=== PATIENT | male | born 1975 | race Caucasian/White ===

== ENCOUNTER 2016-11-25 12:21 | Emergency (ER) | payer BC, OTHER ==
[~2016-11-25 12:21] MED LIST: CIPR500T4 PO; CITA20TA4 PO; LORT7.5T3 PO; RANI150C PO
[2016-11-25 12:23] VITALS: BP 142/94; PULSE 66; RESP 14; TEMP 97.9; O2SAT 98
[2016-11-25] MEDS ORDERED: ZANTTAB9 PO (14:03)
--- NOTE | 2016-11-25 14:23 | PD ---
HPI Chief Complaint: GI Complaint Time Seen by Provider: 14:23 Travel History International Travel<30 days: No Contact w/Intl Traveler<30days: No Traveled to known affect area: No History of Present Illness HPI 41-year-old male with history of anal fissure, repaired by Dr. Mata presents to emergency department for evaluation. Patient states that his surgery was in September. He has a history of colitis and has had bloody stools over the last 2 weeks. He did not think much of this because that typically happens with his colitis flares. He states what is concerning is the increased pain in his rectum and in the perineum posterior to his scrotum. Patient denies fever or chills. No nausea or vomiting. No chest pain or tinnitus. No difficulty breathing. Patient has had no episodes of diaphoresis or dizziness. He has no other symptoms to report. PFSH Past Medical History Heart Rhythm Problems: Yes ([id number]) Cardiac Catheterization: No Cardiovascular Problems: Yes (WPW) High Cholesterol: No Congestive Heart Failure: No Diabetes: No Diminished Hearing: No Gastrointestinal Disorders: Yes (COLITIS) Hypertension: No Musculoskeletal: Yes ("BACK PROBLEMS") Myocardial Infarction: No Past Surgical History Coronary Artery Bypass Graft: No Genitourinary Surgery: Yes (VASECTOMY) Other Surgery: Yes (FISTULA REPAIR, POLYP REMOVAL ) Social History Alcohol Use: Yes (3 BEERS/DAY) Tobacco Use: Yes (1/2 PPD) Substance Use: No Allergies-Medications (Allergen,Severity, Reaction): Coded Allergies: Penicillin (Verified Allergy, Severe, Rash, 06/17/11) Reported Meds & Prescriptions Reported Meds & Active Scripts Active Ibuprofen 800 Mg Tab 800 Mg PO Q8H PRN Flagyl (Metronidazole) 500 Mg Tab 500 Mg PO TID 7 Days Cipro (Ciprofloxacin HCl) 500 Mg Tab 500 Mg PO BID 10 Days Reported Zantac 75 (Ranitidine HCl) 75 Mg Tab 75 Mg PO DAILY Take 30 to 60 minutes before eating food or drinking beverages that cause heartburn. Review of Systems Except as stated in HPI: all other systems reviewed are Neg Physical Exam Narrative GENERAL: Well-nourished, well-developed patient. SKIN: Warm and dry. HEAD: Normocephalic. EYES: No scleral icterus. No injection or drainage. NECK: Supple, trachea midline. No JVD or lymphadenopathy. CARDIOVASCULAR: Regular rate and rhythm without murmurs, gallops, or rubs. RESPIRATORY: Breath sounds equal bilaterally. No accessory muscle use. GASTROINTESTINAL: Abdomen soft, non-tender, nondistended. RECTAL EXAM: Exam done in presence of nursing staff. No masses. Significant tenderness to palpation. No areas of fluctuance. Stool is maroon brown. MUSCULOSKELETAL: No cyanosis, or edema. BACK: Nontender without obvious deformity. No CVA tenderness. Data Data Last Documented VS Vital Signs Date Time Temp Pulse Resp B/P Pulse Ox O2 Delivery O2 Flow Rate FiO2 11/25/16 12:23 97.9 66 14 142/94 98 Room Air Orders Iv Access Insert/Monitor (11/25/16 14:24) Complete Blood Count With Diff (11/25/16 14:24) Basic Metabolic Panel (Bmp) (11/25/16 14:24) Urinalysis - C+S If Indicated (11/25/16 14:24) Ct Abd/Pel W Iv Contrast(Rout) (11/25/16 ) Iohexol 350 Inj (Omnipaque 350 Inj) (11/25/16 15:15) Labs Laboratory Tests Test 11/25/16 11/25/16 14:30 16:05 White Blood Count 5.6 TH/MM3 Red Blood Count 4.78 MIL/MM3 Hemoglobin 14.7 GM/DL Hematocrit 42.6 % Mean Corpuscular Volume 89.1 FL Mean Corpuscular Hemoglobin 30.7 PG Mean Corpuscular Hemoglobin 34.5 % Concent Red Cell Distribution Width 13.2 % Platelet Count 378 TH/MM3 Mean Platelet Volume 7.5 FL Neutrophils (%) (Auto) 46.5 % Lymphocytes (%) (Auto) 39.3 % Monocytes (%) (Auto) 10.0 % Eosinophils (%) (Auto) 3.4 % Basophils (%) (Auto) 0.8 % Neutrophils # (Auto) 2.6 TH/MM3 Lymphocytes # (Auto) 2.2 TH/MM3 Monocytes # (Auto) 0.6 TH/MM3 Eosinophils # (Auto) 0.2 TH/MM3 Basophils # (Auto) 0.0 TH/MM3 CBC Comment DIFF FINAL Differential Comment Sodium Level 140 MEQ/L Potassium Level 3.6 MEQ/L Chloride Level 103 MEQ/L Carbon Dioxide Level 31.4 MEQ/L Anion Gap 6 MEQ/L Blood Urea Nitrogen 9 MG/DL Creatinine 1.01 MG/DL Estimat Glomerular Filtration 81 ML/MIN Rate Random Glucose 91 MG/DL Calcium Level 9.2 MG/DL Urine Color LIGHT-YELLOW Urine Turbidity CLEAR Urine pH 6.0 Urine Specific Ma[place] GREATER THAN 1.050 Urine Protein NEG mg/dL Urine Glucose (UA) NEG mg/dL Urine Ketones NEG mg/dL Urine Occult Blood NEG Urine Nitrite NEG Urine Bilirubin NEG Urine Urobilinogen LESS THAN 2.0 MG/DL Urine Leukocyte Esterase NEG Urine WBC 2 /hpf Microscopic Urinalysis Comment CULT NOT INDICATED MDM Medical Decision Making Medical Screen Exam Complete: Yes Emergency Medical Condition: Yes Medical Record Reviewed: Yes Differential Diagnosis Colitis versus diverticulitis versus perianal abscess versus perirectal abscess versus GI bleed. Narrative Course 41-year-old male presents to the emergency department for evaluation of bloody stool and rectal pain. Appears well. He does have tenderness on rectal examination with a positive Hemoccult. CBC and chemistry are without acute concern. CT of the abdomen and pelvis shows mild inflammatory change adjacent to the mid sigmoid colon and there is a mild sigmoid diverticulosis. These combined findings suggest an inflammatory process likely a mild diverticulitis as the etiology. No abscess or free fluid identified. Remainder of the examination is within normal limits. I discussed the patient with my attending physician who also assessed the patient. I have placed a call to Dr. Mata. After discussing the results with him, Patient will be discharged home on Cipro and Flagyl and is instructed to follow-up with [facility] Internal Pos. & Neg. Controls: Passed Fecal Specimen Occult Blood: Positive Diagnosis Primary Impression: Diverticulitis Qualified Code: K57.33 - Diverticulitis of large intestine without perforation or abscess with bleeding Additional Impression: Bloody stools Referrals: Shaji Mata MD Primary Care Physician Patient Instructions: Diverticulitis (ED), Diverticulitis Diet (ED), General Instructions Departure Forms: Tests/Procedures, Work Release Enter return to work date: Nov 27, 2016 Additional Instructions: Follow-up with Dr. Mata; contact his office for an appointment Follow your primary care provider Return immediately to the emergency department with any acute worsening of symptoms. Med/Other Pt SpecificInfo: Prescription(s) given Scripts Ibuprofen 800 Mg [id number] Mg PO Q8H PRN (PAIN SCALE 1 TO 10) #30 TAB Ref 0 Prov:Hannah Morelos 11/25/16 Metronidazole (Flagyl)500 Mg [id number] Mg PO TID 7 Days Ref 0 Prov:Hannah Morelos 11/25/16 Ciprofloxacin (Cipro)500 Mg [id number] Mg PO BID 10 Days Ref 0 Prov:Hannah oMrelos 11/25/16 Disposition: 01 DISCHARGE HOME Condition: Stable Hannah Morelos Nov 25, 2016 14:23
[2016-11-25 14:40] LABS: AUTOMATED NEUTROPHIL # 2.6 TH/MM3 (1.8-7.7); BASOPHIL % 0.8 % (0.0-2.0); EOSINOPHIL # 0.2 TH/MM3 (0-0.4); EOSINOPHIL % 3.4 % (0.0-4.0); HEMATOCRIT 42.6 % (39.0-51.0); HEMO FLAGS DIFF FINAL; LYMPH % 39.3 % (9.0-44.0); LYMPHOCYTE # 2.2 TH/MM3 (1.0-4.8); MEAN CELL VOLUME 89.1 FL (80.0-100.0); MEAN CORPUSCULAR HEMOGLOBIN 30.7 PG (27.0-34.0); MEAN CORPUSCULAR HGB CONC 34.5 % (32.0-36.0); NEUT % 46.5 % (16.0-70.0); PLATELET COUNT 378 TH/MM3 (150-450); RED BLOOD COUNT 4.78 MIL/MM3 (4.50-5.90); RED CELL DISTRIBUTION WIDTH 13.2 % (11.6-17.2); WHITE BLOOD COUNT 5.6 TH/MM3 (4.0-11.0)
[2016-11-25 15:00] LABS: BICARBONATE 31.4 MEQ/L (21.0-32.0); POTASSIUM 3.6 MEQ/L (3.5-5.1)
[2016-11-25] MEDS ORDERED: IOHEXOL 350 MG/ML 10 ML VIAL (for RAD DIAG) IV ONE (15:15)
--- NOTE | 2016-11-25 15:28 | RADRPT ---
EXAM DATE/TIME: 11/25/2016 15:05 [facility] COMPARISON: No previous studies available for comparison. INDICATIONS : Constant hypogastric abdominal pain with rectal bleeding for 2 weeks; worsens with bowel movements. IV CONTRAST: 71 cc Omnipaque 350 (iohexol) IV ORAL CONTRAST: No oral contrast ingested. RADIATION DOSE: 9.96 CTDIvol (mGy) MEDICAL HISTORY : Cardiovascular disease. Colitis. SURGICAL HISTORY : None. ENCOUNTER: Initial ACUITY: 2 weeks PAIN SCALE: 7/10 LOCATION: Hypogastric abdomen/pelvis TECHNIQUE: Volumetric scanning of the abdomen and pelvis was performed. Using automated exposure control and ad justment of the mA and/or kV according to patient size, radiation dose was kept as low as reasonably achievable to obtain optimal diagnostic quality images. FINDINGS: LOWER LUNGS: The visualized lower lungs are clear. LIVER: Homogeneous density without lesion. There is no dilation of the biliary tree. No calcified gallston es. SPLEEN: Normal size without lesion. PANCREAS: Within normal limits. KIDNEYS: Normal in size and shape. There is no mass, stone or hydronephrosis. ADRENAL GLANDS: Within normal limits. VASCULAR: There is no aortic aneurysm. There is very mild atherosclerotic disease. BOWEL/MESENTERY: The stomach and small bowel demonstrate no abnormality. Terminal ileum and appendix are normal. There is mild sigmoid diverticulosis. No pericolonic inflammatory change is present adjacent to the latera l aspect of the mid sigmoid colon. There is also adjacent thickening of the retroperitoneal fascial p erika. No free air or free fluid is present. ABDOMINAL WALL: Within normal limits. RETROPERITONEUM: There is no lymphadenopathy. BLADDER: No wall thickening or mass. REPRODUCTIVE: Within normal limits. INGUINAL: There is no lymphadenopathy or hernia. MUSCULOSKELETAL: Within normal limits for patient age. CONCLUSION: 1. There is mild inflammatory change adjacent to the mid sigmoid colon and there are is mild sigmoid diverticulosis. These combined findings suggest an inflammatory process, likely a mild diverticulitis as the etiology. No abscess or free fluid is present. 2. Remainder of the examination is within normal limits. Stuart Kendrick MD on November 25, 2016 at 15:20 Board Certified Radiologist. This report was verified electronically.
[2016-11-25] MEDS ORDERED: CIPR-9 PO (16:17)
[2016-11-25] MEDS ORDERED: METR-1 PO (16:17)
[2016-11-25] MEDS ORDERED: IBUP800T23 PO (16:18)
[2016-11-25 16:24] LABS: BLOOD, URINE NEG (NEG); GLUCOSE,URINE NEG (NEG); KETONE, URINE NEG (NEG); NITRITE,URINE NEG (NEG); URINE COLOR LIGHT-YELLOW (YELLW/STRAW)
[2016-11-25 16:27] LABS: COMMENT (UR) CULT NOT INDICATED; CULTURE IF INDICATED CULT NOT INDICATED
--- NOTE | 2016-11-25 16:30 | PD ---
Physical Exam Date Seen by Provider: Nov 25, 2016 Time Seen by Provider: 15:30 Narrative I, Dr. Griffin, have reviewed the advance practice practitioner's documentation and am in agreement, met with the patient face to face, made the diagnosis, and the medical decision making was done by me. *My assessment and Findings: Patient is seen with nurse practitioner, please see nurse practitioner note for further information. Here with rectal bleeding , pain, history of ulcerative colitis. On evaluation, patient is well-appearing , abdomen is benign and nontender, he does have Hemoccult positive stools. Laboratory Tests Test 11/25/16 14:30 Monocytes (%) (Auto) 10.0 % (0.0-8.0) Estimat Glomerular Filtration 81 ML/MIN (>89) Rate Last 24 hours Impressions Abdomen/Pelvis CT 11/25/16 0000 Signed Impressions: Service Date/Time: Friday, November 25, 2016 15:05 - CONCLUSION: 1. There is mild inflammatory change adjacent to the mid sigmoid colon and there are is mild sigmoid diverticulosis. These combined findings suggest an inflammatory process , likely a mild diverticulitis as the etiology. No abscess or free fluid is present. 2. Remainder of the examination is within normal limits. Stuart Kendrick MD Lab work is negative and CAT scan did not revealing signs of acute intra- abdominal or pelvic or perirectal processes. He does have some mild diverticulitis. At this point, case was discussed briefly with Dr. Mata and patient is released with antibiotics for treatment of diverticulitis. He should follow-up with his primary care physician Dr. Mata. Return for any worsening in bleeding, pain, and as needed. The plan was discussed with the patient he states understanding. Data Data Last Documented VS Vital Signs Date Time Temp Pulse Resp B/P Pulse Ox O2 Delivery O2 Flow Rate FiO2 11/25/16 12:23 97.9 66 14 142/94 98 Room Air Orders Iv Access Insert/Monitor (11/25/16 14:24) Complete Blood Count With Diff (11/25/16 14:24) Basic Metabolic Panel (Bmp) (11/25/16 14:24) Urinalysis - C+S If Indicated (11/25/16 14:24) Ct Abd/Pel W Iv Contrast(Rout) (11/25/16 ) Iohexol 350 Inj (Omnipaque 350 Inj) (11/25/16 15:15) Labs Laboratory Tests Test 11/25/16 14:30 White Blood Count 5.6 TH/MM3 Red Blood Count 4.78 MIL/MM3 Hemoglobin 14.7 GM/DL Hematocrit 42.6 % Mean Corpuscular Volume 89.1 FL Mean Corpuscular Hemoglobin 30.7 PG Mean Corpuscular Hemoglobin 34.5 % Concent Red Cell Distribution Width 13.2 % Platelet Count 378 TH/MM3 Mean Platelet Volume 7.5 FL Neutrophils (%) (Auto) 46.5 % Lymphocytes (%) (Auto) 39.3 % Monocytes (%) (Auto) 10.0 % Eosinophils (%) (Auto) 3.4 % Basophils (%) (Auto) 0.8 % Neutrophils # (Auto) 2.6 TH/MM3 Lymphocytes # (Auto) 2.2 TH/MM3 Monocytes # (Auto) 0.6 TH/MM3 Eosinophils # (Auto) 0.2 TH/MM3 Basophils # (Auto) 0.0 TH/MM3 CBC Comment DIFF FINAL Differential Comment Sodium Level 140 MEQ/L Potassium Level 3.6 MEQ/L Chloride Level 103 MEQ/L Carbon Dioxide Level 31.4 MEQ/L Anion Gap 6 MEQ/L Blood Urea Nitrogen 9 MG/DL Creatinine 1.01 MG/DL Estimat Glomerular Filtration 81 ML/MIN Rate Random Glucose 91 MG/DL Calcium Level 9.2 MG/DL [facility] Medical Record Reviewed: Yes Supervised Visit with TELLY: Yes Diagnosis Primary Impression: Diverticulitis Qualified Code: K57.33 - Diverticulitis of large intestine without perforation or abscess with bleeding Additional Impression: Bloody stools Referrals: Shaji Mata MD Primary Care Physician Patient Instructions: General Instructions, Diverticulitis (ED), Diverticulitis Diet (ED) Departure Forms: Work Release, Enter return to work date: Tests/Procedures Additional Instruction: Follow-up with Dr. Mata; contact his office for an appointment Follow your primary care provider Return immediately to the emergency department with any acute worsening of symptoms. Scripts Ibuprofen 800 Mg [id number] Mg PO Q8H PRN (PAIN SCALE 1 TO 10) #30 TAB Ref 0 Prov:Hannah Morelos 11/25/16 Metronidazole (Flagyl)500 Mg [id number] Mg PO TID 7 Days Ref 0 Prov:Hannah Morelos 11/25/16 Ciprofloxacin (Cipro)500 Mg Ijw125 Mg PO BID 10 Days Ref 0 Prov:Hannah Morelos 11/25/16 Disposition: 01 DISCHARGE HOME Condition: Stable Gary Griffin MD Nov 25, 2016 16:30
== END 2016-11-25 16:31 | disposition home or self-care (01) ==
LOC: NEPE 12:21
DX: K57.92 Diverticulitis of intestine, part unspecified, without perforation or abscess without bleeding (principal); G20 Parkinson's disease; K52.9 Noninfective gastroenteritis and colitis, unspecified
CPT/HCPCS: 74177; 80048; 81001; 85025; 99285; Q9967

== ENCOUNTER 2018-03-24 03:33 | Emergency (ER) | payer OTHER ==
[~2018-03-24] VITALS: Ht 177.8 cm; Wt 81.3 kg
[~2018-03-24 03:33] MED LIST changes: +CIPR-9 PO; -CIPR500T4 PO; -CITA20TA4 PO; +IBUP1TAB7 PO; -LORT7.5T3 PO; +METR-1 PO; -RANI150C PO; +ZANTTAB9 PO
[2018-03-24 03:35] VITALS: BP 135/87; PULSE 94; RESP 18; TEMP 98.3; O2SAT 96
[2018-03-24] MEDS ORDERED: ZANT150T2 PO (03:41)
[2018-03-24] MEDS ORDERED: SODIUM CHLOR 0.9% 1000 ML INJ 1,000 ML IV SCH (03:55)
[2018-03-24] MEDS ORDERED: SODIUM CHLORIDE 0.9% FLUSH 10 ML FLUSH IV FLUSH PRN (04:00)
[2018-03-24] MEDS ORDERED: KETOROLAC TROMETHAMINE 30 MG/ML (IVP) VIAL IVP ONE (04:00)
[2018-03-24] MEDS ORDERED: MORPHINE SULFATE 4 MG/ML INJ IV PUSH ONE (04:00)
[2018-03-24] MEDS ORDERED: ONDANSETRON HCL 4 MG/2 ML VIAL IVP ONE (04:00)
--- NOTE | 2018-03-24 04:04 | PD ---
HPI Chief Complaint: Abdominal Pain Time Seen by Provider: 03:46 Travel History International Travel<30 days: No Contact w/Intl Traveler<30days: No Traveled to known affect area: No History of Present Illness HPI Patient is a 42 year old male, with history of diverticulitis, who comes in complaining of abdominal pain. He says it started about 8 hours ago. He says it eased up a little and he went to asleep, but then it came back and woke him up. He has not taken anything for the pain. He says the pain is in his lower abdomen. He denies vomiting, but has had some nausea. He says he had some diarrhea yesterday, but nothing today. He denies fever or chills. He says he has normal urination. Severity is mild to moderate. PFSH Past Medical History Blood Disorders: No Anxiety: Yes Depression: No Heart Rhythm Problems: Yes ([id number]) Cancer: No Cardiac Catheterization: No Cardiovascular Problems: Yes (WPW) High Cholesterol: No Chemotherapy: No Congestive Heart Failure: No Diabetes: No Diminished Hearing: No Diverticulitis: Yes Endocrine: No Gastrointestinal Disorders: Yes (COLITIS) Genitourinary: No Hypertension: No Immune Disorder: No Implanted Vascular Access Dvce: No Musculoskeletal: Yes ("BACK PROBLEMS") Psychiatric: No Reproductive: No Respiratory: No Myocardial Infarction: No Radiation Therapy: No Tetanus Vaccination: Unknown Influenza Vaccination: No Past Surgical History Coronary Artery Bypass Graft: No Genitourinary Surgery: Yes (VASECTOMY) Other Surgery: Yes (FISTULA REPAIR, POLYP REMOVAL ) Family History Family Myocardial Infarction: No Social History Alcohol Use: Yes (3 BEERS/DAY) Tobacco Use: Yes (1/2 PPD) Substance Use: No Allergies-Medications (Allergen,Severity, Reaction): Coded Allergies: penicillin G (Unverified Allergy, Severe, Rash, 03/24/18) Reported Meds & Prescriptions Reported Meds & Active Scripts Active Review of Systems Except as stated in HPI: all other systems reviewed are Neg General / Constitutional: No: Fever, Chills HENT: No: Headaches, Lightheadedness Cardiovascular: No: Chest Pain or Discomfort Respiratory: No: Shortness of Breath Gastrointestinal: Positive: Nausea, Diarrhea, Abdominal Pain Genitourinary: No: Dysuria Musculoskeletal: No: Myalgias, Edema Skin: No Rash, No Change in Pigmentation Neurologic: No: Weakness, Dizziness Physical Exam Narrative GENERAL: Awake and alert, in no acute distress. SKIN: Focused skin assessment warm/dry. HEAD: Atraumatic. Normocephalic. EYES: Pupils equal and round. No scleral icterus. ENT: Mucous membranes pink and moist. NECK: Trachea midline. No JVD. CARDIOVASCULAR: Regular rate and rhythm. No murmur appreciated. RESPIRATORY: No accessory muscle use. Clear to auscultation. Breath sounds equal bilaterally. GASTROINTESTINAL: Abdomen soft, nondistended. Tender to palpation of the left side of the abdomen. No rebound or guarding. MUSCULOSKELETAL: No obvious deformities. No clubbing. No cyanosis. No edema. NEUROLOGICAL: Awake and alert. No obvious cranial nerve deficits. Motor grossly within normal limits. Normal speech. PSYCHIATRIC: Appropriate mood and affect; insight and judgment normal. Data Data Last Documented VS Vital Signs Date Time Temp Pulse Resp B/P (MAP) Pulse Ox O2 Delivery O2 Flow Rate FiO2 03/24/18 04:06 97 03/24/18 03:35 98.3 94 18 135/87 (103) Orders Orders Complete Blood Count With Diff (03/24/18 03:55) Comprehensive Metabolic Panel (03/24/18 03:55) Prothrombin Time / Inr (Pt) (03/24/18 03:55) Act Partial Throm Time (Ptt) (03/24/18 03:55) Urinalysis - C+S If Indicated (03/24/18 03:55) Ct Abd/Pel W Iv Contrast(Rout) (03/24/18 03:55) Iv Access Insert/Monitor (03/24/18 03:55) Ecg Monitoring (03/24/18 03:55) Oximetry (03/24/18 03:55) Morphine Inj (Morphine Inj) (03/24/18 04:00) Ondansetron Inj (Zofran Inj) (03/24/18 04:00) Sodium Chlor 0.9% 1000 Ml Inj (Ns 1000 M (03/24/18 03:55) Sodium Chloride 0.9% Flush (Ns Flush) (03/24/18 04:00) Ketorolac Inj (Toradol Inj) (03/24/18 04:00) Iohexol 350 Inj (Omnipaque 350 Inj) (03/24/18 04:57) Labs Laboratory Tests Test 03/24/18 04:00 White Blood Count 10.3 TH/MM3 Red Blood Count 4.97 MIL/MM3 Hemoglobin 14.9 GM/DL Hematocrit 44.8 % Mean Corpuscular Volume 90.1 FL Mean Corpuscular Hemoglobin 30.0 PG Mean Corpuscular Hemoglobin Concent 33.3 % Red Cell Distribution Width 12.8 % Platelet Count 359 TH/MM3 Mean Platelet Volume 8.0 FL Neutrophils (%) (Auto) 73.8 % Lymphocytes (%) (Auto) 15.3 % Monocytes (%) (Auto) 9.3 % Eosinophils (%) (Auto) 1.1 % Basophils (%) (Auto) 0.5 % Neutrophils # (Auto) 7.5 TH/MM3 Lymphocytes # (Auto) 1.6 TH/MM3 Monocytes # (Auto) 1.0 TH/MM3 Eosinophils # (Auto) 0.1 TH/MM3 Basophils # (Auto) 0.1 TH/MM3 CBC Comment DIFF FINAL Differential Comment Prothrombin Time 10.0 SEC Prothromb Time International Ratio 1.0 RATIO Activated Partial Thromboplast Time 25.9 SEC Blood Urea Nitrogen 12 MG/DL Creatinine 0.99 MG/DL Random Glucose 100 MG/DL Total Protein 7.6 GM/DL Albumin 3.9 GM/DL Calcium Level 9.0 MG/DL Alkaline Phosphatase 67 U/L Aspartate Amino Transf (AST/SGOT) 21 U/L Alanine Aminotransferase (ALT/SGPT) 41 U/L Total Bilirubin 0.6 MG/DL Sodium Level 137 MEQ/L Potassium Level 3.9 MEQ/L Chloride Level 104 MEQ/L Carbon Dioxide Level 26.7 MEQ/L Anion Gap 6 MEQ/L Estimat Glomerular Filtration Rate 83 ML/MIN [facility] Medical Decision Making Medical Screen Exam Complete: Yes Emergency Medical Condition: Yes Medical Record Reviewed: Yes Differential Diagnosis UTI vs diverticulitis vs renal stone vs colitis Narrative Course Patient is a 42 year old male who comes in complaining of lower abdominal pain. Exam shows tenderness to palpation of the LLQ, no rebound or guarding. IV established, labs sent. Labs show no acute abnormalities. CT abd/pelvis performed shows evidence of diverticulitis. Last 24 hours Impressions Abdomen/Pelvis CT 03/24/18 0355 Signed Impressions: Service Date/Time: Saturday, March 24, 2018 04:39 - CONCLUSION: Significant inflammation and minimal extraluminal air around the sigmoid colon in the left mid pelvis consistent with diverticulitis. There is no drainable fluid filled abscess or drainable collection seen. Alejandro Doll MD Patient given IVF, toradol, morphine with improvement of his symptoms. Will be discharged with prescriptions for Cipro, Flagyl, [place]. Advised to avoid alcohol while taking the antibiotics. Advised to return for any worsening symptoms or if he does not improve in the next few days. Advised to follow up with his doctor. He is comfortable with discharge at this time. Diagnosis Primary Impression: Diverticulitis Patient Instructions: Diverticulitis (ED), General Instructions Additional Instructions: Take all of your antibiotics. Do not drink alcohol while taking the antibiotics. Take pain medicine as needed. Drink plenty of fluids. Follow up with your doctor. Return to the ED as needed for any worsening symptoms. Scripts Hydrocodone-Acetaminophen ([place]) 5 Mg-325 Mg Tab 1 TAB PO Q6H Y for PAIN, #12 TAB 0 Refills Prov: Cecilia Dunham MD 03/24/18 Metronidazole (Flagyl) 500 Mg Tab 500 MG PO TID for Infection for 7 Days, TAB 0 Refills Prov: Cecilia Dunham MD 03/24/18 Ciprofloxacin (Cipro) 500 Mg Tab 500 MG PO BID for Infection for 7 Days, #14 TAB 0 Refills Prov: Cecilia Dunham MD 03/24/18 Disposition: 01 DISCHARGE HOME Condition: Stable Cecilia Dunham MD March 24, 2018 04:04
[2018-03-24 04:06] VITALS: O2SAT 97
[2018-03-24 04:10] LABS: AUTOMATED NEUTROPHIL # 7.5 TH/MM3 (1.8-7.7); BASOPHIL # 0.1 TH/MM3 (0-0.2); BASOPHIL % 0.5 % (0.0-2.0); EOSINOPHIL # 0.1 TH/MM3 (0-0.4); EOSINOPHIL % 1.1 % (0.0-4.0); HEMATOCRIT 44.8 % (39.0-51.0); HEMOGLOBIN 14.9 GM/DL (13.0-17.0); LYMPH % 15.3 % (9.0-44.0); LYMPHOCYTE # 1.6 TH/MM3 (1.0-4.8); MEAN CELL VOLUME 90.1 FL (80.0-100.0); MEAN CORPUSCULAR HGB CONC 33.3 % (32.0-36.0); MONO % 9.3 % (0.0-8.0); NEUT % 73.8 % (16.0-70.0); PLATELET COUNT 359 TH/MM3 (150-450); RED BLOOD COUNT 4.97 MIL/MM3 (4.50-5.90); RED CELL DISTRIBUTION WIDTH 12.8 % (11.6-17.2); WHITE BLOOD COUNT 10.3 TH/MM3 (4.0-11.0)
[2018-03-24 04:17] LABS: CHLORIDE 104 MEQ/L (98-107); SODIUM (NA) 137 MEQ/L (136-145)
[2018-03-24 04:21] LABS: ALBUMIN 3.9 GM/DL (3.4-5.0); BICARBONATE 26.7 MEQ/L (21.0-32.0); BLOOD UREA NITROGEN 12 MG/DL (7-18); GLUCOSE,RANDOM 100 MG/DL (74-106)
[2018-03-24 04:24] LABS: ALT (GPT) 41 U/L (12-78); AST (GOT) 21 U/L (15-37); CREATININE 0.99 MG/DL (0.60-1.30); GLOMERULAR FILTRATION RATE 83 ML/MIN (>89)
[2018-03-24 04:26] LABS: TOTAL BILIRUBIN ADULT 0.6 MG/DL (0.2-1.0); TOTAL PROTEIN 7.6 GM/DL (6.4-8.2)
[2018-03-24 04:27] LABS: ALKALINE PHOSPHATASE 67 U/L (45-117)
[2018-03-24] MEDS ORDERED: IOHEXOL 350 MG/ML 10 ML VIAL (for RAD DIAG) IVCONTRAST ONE (04:57)
--- NOTE | 2018-03-24 05:07 | RADRPT ---
EXAM DATE/TIME: 03/24/2018 04:39 [facility] COMPARISON: No previous studies available for comparison. INDICATIONS : Bilateral lower quadrant pain. IV CONTRAST: 100 cc Omnipaque 350 (iohexol) IV ORAL CONTRAST: No oral contrast ingested. RADIATION DOSE: 9.35 CTDIvol (mGy) MEDICAL HISTORY : Diverticulitis. Colitis. SURGICAL HISTORY : None. ENCOUNTER: Initial ACUITY: 1 day PAIN SCALE: 8/10 LOCATION: Bilateral lower quadrant TECHNIQUE: Volumetric scanning of the abdomen and pelvis was performed. Using automated exposure control and ad justment of the mA and/or kV according to patient size, radiation dose was kept as low as reasonably achievable to obtain optimal diagnostic quality images. DICOM format image data is available electro nically for review and comparison. FINDINGS: LOWER LUNGS: The visualized lower lungs are clear. LIVER: Homogeneous density without lesion. There is no dilation of the biliary tree. No calcified gallston es. SPLEEN: Normal size without lesion. PANCREAS: Within normal limits. KIDNEYS: Normal in size and shape. There is no mass, stone or hydronephrosis. ADRENAL GLANDS: Within normal limits. VASCULAR: There is no aortic aneurysm. BOWEL/MESENTERY: There is some inflammatory stranding, almost phlegmonous around the sigmoid colon in the left mid pel vis suspicious for diverticulitis. There is a small amount of extraluminal air and definite inflammat ion without drainable fluid collection or abscess. ABDOMINAL WALL: Within normal limits. RETROPERITONEUM: There is no lymphadenopathy. BLADDER: No wall thickening or mass. REPRODUCTIVE: Within normal limits. INGUINAL: There is no lymphadenopathy or hernia. MUSCULOSKELETAL: Within normal limits for patient age. CONCLUSION: Significant inflammation and minimal extraluminal air around the sigmoid colon in the left mid pelvis consistent with diverticulitis. There is no drainable fluid filled abscess or drainable collection s een. Alejandro Doll MD on March 24, 2018 at 5:04 Board Certified Radiologist. This report was verified electronically.
[2018-03-24] MEDS ORDERED: METR-1 PO (05:20)
[2018-03-24] MEDS ORDERED: CIPR-9 PO (05:20)
[2018-03-24] MEDS ORDERED: NORC5TAB PO (05:20)
[2018-03-24 05:22] LABS: BILIRUBIN, URINE NEG (NEG); BLOOD, URINE TRACE (NEG); GLUCOSE,URINE NEG (NEG); KETONE, URINE NEG (NEG); NITRITE,URINE NEG (NEG); PH, URINE 5.5 (5.0-8.5); URINE COLOR YELLOW (YELLW/STRAW); URINE LEUKOCYTE ESTERASE NEG (NEG)
[2018-03-24] MEDS ORDERED: ACETAMINOPHEN/HYDROcodone 325 MG/5 MG TAB PO ONE (05:30)
[2018-03-24 05:36] LABS: RBC, URINE 0-3 /hpf (0-3); SQUAMOUS EPITHELIAL CELL URINE 0-5 /hpf (0-5); WBC, URINE 0-2 /hpf (0-5)
[2018-03-24 05:40] VITALS: BP 129/69
== END 2018-03-24 05:42 | disposition home or self-care (01) ==
LOC: PHED 03:33
DX: K57.92 Diverticulitis of intestine, part unspecified, without perforation or abscess without bleeding (principal); F41.9 Anxiety disorder, unspecified; I45.6 Pre-excitation syndrome; F17.200 Nicotine dependence, unspecified, uncomplicated; Z88.0 Allergy status to penicillin; Z87.19 Personal history of other diseases of the digestive system
CPT/HCPCS: 74177; 80053; 81001; 85025; 85610; 85730; 96361; 96374; 96375; 99284; J1885; J2270; J2405; J7030; Q9967